=== PATIENT | male | born 1990 | race Caucasian/White ===

== ENCOUNTER 2019-06-23 01:33 | Emergency (ER) | payer OTHER ==
[~2019-06-23] VITALS: Ht 175.3 cm; Wt 124.0 kg
[2019-06-23 01:46] VITALS: BP 107/68
--- NOTE | 2019-06-23 01:55 | NUR ---
29 Y/O MALE PRESENTED TO ED, C/O NAUSEA AND HEMATEMISIS X1 EPISODE. PT STATES HE WAS VOMITTING BLOOD 1 HR ADON, UNABLE TO SPECIFY AMOUNT AND COLOR OF BLOOD. BOWEL SOUNDS ACTIVE IN ALL QUADRANTS. PT HAS NO MEDICAL HISTORY AND NKA. VSS. DR GILMAN AWARE. WILL CONTINUE TO MONITOR.
--- NOTE | 2019-06-23 01:55 | NUR ---
PT AMBULATED TO BED 9.
--- NOTE | 2019-06-23 01:58 | NUR ---
DR. GILMAN EVALUATING AT BEDSIDE.
[2019-06-23] MEDS ORDERED: ONDANSETRON 4 MG ODT PO ONE (02:05)
[2019-06-23 02:37] LABS: BASOPHILS % (AUTO) 0.6 % (0.0-2.0); EOSINOPHILS # (AUTO) 0.2 K/uL (0-0.4); EOSINOPHILS % (AUTO) 2.7 % (0.0-4.0); HEMATOCRIT 41.3 % (36-52); HEMOGLOBIN 13.7 g/dL (12.0-18.0); LYMPHOCYTES % (AUTO) 26.4 % (20.5-51.1); MEAN CORPUSCULAR HEMOGLOBIN 27 pg (27-31); MEAN CORPUSCULAR HGB CONC 33 g/dL (33-37); MEAN CORPUSCULAR VOLUME 81.7 fL (80-94); MONOCYTES # (AUTO) 0.6 K/uL (0.8-1.0); MONOCYTES % (AUTO) 7.6 % (1.7-9.3); NEUTROPHILS # (AUTO) 4.6 K/uL (1.8-7.7); NEUTROPHILS % (AUTO) 62.7 % (42.2-75.2); PLATELET COUNT (AUTO) 239 K/uL (140-450); RED BLOOD CELL COUNT(AUTO) 5.06 MIL/uL (4.20-6.10); RED CELL DISTRIBUTION WIDTH 14.1 % (11.6-13.7); WHITE BLOOD COUNT (AUTO) 7.4 K/uL (4.8-10.8)
[2019-06-23 02:48] LABS: ANION GAP 10.8 (8-16); CARBON DIOXIDE 27.9 mmol/L (21-32); CREATININE 1.2 mg/dL (0.7-1.3); POTASSIUM 3.7 mmol/L (3.5-5.1)
[2019-06-23 02:54] LABS: TOTAL BILIRUBIN 0.3 mg/dL (0.0-1.0)
[2019-06-23 03:20] VITALS: BP 117/66
--- NOTE | 2019-06-23 03:20 | NUR ---
PT DISCHARGED WITH PAPERWORK. RX ZOFRAN. EDUCATED PT REGARDING MEDICATION AND SIDE EFFECTS. NO N/V AT DISCHARGE. VSS. TOLD PT TO FOLLOW UP WITH PCP AND WHEN TO RETURN TO ED. ALL QUESTIONS ANSWERED.
== END 2019-06-23 03:20 | disposition home or self-care (01) ==
LOC: MED 01:33
DX: K92.0 Hematemesis (principal)
CPT/HCPCS: 36415; 80053; 83690; 85025; 99283; Q0162